=== PATIENT | male | born 1940 | race Two or more races ===

== ENCOUNTER 2019-01-26 10:20 | Inpatient (IN) | payer OTHER ==
[~2019-01-26] VITALS: Ht 175.3 cm; Wt 90.7 kg
[2019-01-26] MEDS ORDERED: TOPROL XL25 M1 (10:32)
[2019-01-26] MEDS ORDERED: PLAVIX75 MG (10:32)
[2019-01-26] MEDS ORDERED: ASPIRIN81 M1 (10:32)
[2019-01-26] MEDS ORDERED: OMEGA-3100 MG (10:33)
[2019-01-26] MEDS ORDERED: LIPITOR40 MG (10:33)
== END 2019-01-29 15:01 | disposition home or self-care (01) | DRG 379 ==
LOC: ER 10:20 → MEDI 13:57 → SEC-K 13:57 → MEDJ 15:17 → MEDI 15:17
PROVIDERS: ADMIT Specialist
PROC: BW21Y0Z Computerized Tomography (CT Scan) of Abdomen and Pelvis using Other Contrast, Unenhanced and Enhanced (ICD-10-PCS; 2019-01-26)
PROC: 0DJD8ZZ Inspection of Lower Intestinal Tract, Via Natural or Artificial Opening Endoscopic (ICD-10-PCS; principal; 2019-01-29)
DX: K57.31 Diverticulosis of large intestine without perforation or abscess with bleeding (principal); K62.5 Hemorrhage of anus and rectum; I11.9 Hypertensive heart disease without heart failure; I25.10 Atherosclerotic heart disease of native coronary artery without angina pectoris

== ENCOUNTER 2023-04-15 10:14 | Emergency (ER) | payer OTHER ==
[~2023-04-15] VITALS: Ht 177.8 cm; Wt 97.5 kg
[~2023-04-15 10:14] MED LIST: ASPIRIN81 M1; LIPITOR40 MG; OMEGA-3100 MG; PLAVIX75 MG; TOPROL XL25 M1
[2023-04-15 10:39] LABS: HEMATOCRIT 42.4 % (39.0-48.0); HEMOGLOBIN 14.7 g/dL (13-16.00); MEAN CELL VOLUME 86.4 fL (80.0-100.00); MEAN CORPUSCULAR HEMOGLOBIN 29.9 pg (27.00-32.0); MEAN CORPUSCULAR HGB CONC 34.6 g/dl (32.0-36.0); PLATELET COUNT 172 K/uL (150-450); RED BLOOD COUNT 4.91 M/uL (4.00-6.00)
[2023-04-15 11:10] LABS: CALCIUM 8.5 mg/dL (8.5-10.1); CREATININE SERUM 1.58 mg/dL (0.70-1.30); GFR 42.09; POTASSIUM 3.61 mEq/L (3.5-5.1)
== END 2023-04-15 12:02 | disposition home or self-care (01) ==
LOC: ER 10:14
PROVIDERS: General Practice
DX: R42 Dizziness and giddiness (principal); I10 Essential (primary) hypertension; Z88.8 Allergy status to other drugs, medicaments and biological substances; Z20.822 Contact with and (suspected) exposure to COVID-19